=== PATIENT | male | born 1995 | race Caucasian/White ===

== ENCOUNTER 2016-12-07 02:09 | Emergency (ER) | payer OTHER ==
[~2016-12-07] VITALS: Ht 188 cm; Wt 70.3 kg
[~2016-12-07 02:09] MED LIST: CONCERTA18 M1; IBUPROFEN 600600 M1 PO; NORCO 5-325 TA1 EACH PO
[2016-12-07 03:20] VITALS: BP 126/77
== END 2016-12-07 03:21 | disposition home or self-care (01) ==
LOC: ER 02:09
DX: S01.01XA Laceration without foreign body of scalp, initial encounter (principal); W13.8XXA Fall from, out of or through other building or structure, initial encounter; Y93.89 Activity, other specified; Y92.89 Other specified places as the place of occurrence of the external cause; Y99.8 Other external cause status